=== PATIENT | female | born 1985 | race Caucasian/White ===

== ENCOUNTER 2019-08-20 16:49 | Inpatient (IN) ==
[2019-08-20] MEDS ORDERED: OXYTOCIN 30 UNITS/500 ML BAG IV PRN ×3 (17:13→23:27)
[2019-08-20] MEDS ORDERED: LACTATED RINGER'S 1,000 ML IV PRN (17:13)
[2019-08-20 17:42] LABS: Hematocrit (blood only) 33.1 % (37-47); Mean Corpuscular Hemoglobin 27.3 pg (25-34); Mean Corpuscular Volume 82.1 fL (80-100); Mean Platelet Volume 12.3 fL (7.4-10.4); Nucleated RBC # (auto) 0.03 K/uL (0-0); Nucleated RBC % (auto) 0.2 %; Platelet Count 211 K/uL (130-400); RDW Coefficient of Variation 13.6 % (11.5-14.5); RDW Standard Deviation 40.8 fL (36.4-46.3); Red Blood Count 4.03 M/uL (4.2-5.4); White Blood Count 17.26 K/uL (4.8-10.8)
[2019-08-20 17:48] LABS: Mean Corpuscular Hgb Conc 33.2 g/dL (32-36)
--- NOTE | 2019-08-20 18:40 | History & Physical Report ---
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 Patient states her contractions began in earnest at approximately 1400 hrs. on day of admission. She denied rupture of membranes or vaginal bleeding. The patient's course is remarkable for gestational diabetes, diet- controlled. She was diagnosed at 28 weeks. All abdominal circumference ultrasounds of the fetus have been less than the 75th percentile and she has been managed with diet alone. Laboratory values for this show blood type of O+, antibody negative, rubella immune, hepatitis B negative, the patient declined all genetic screening, and she had a negative third trimester beta strep culture. Allergies Allergy/AdvReac Type Severity Reaction Status Date / Time escitalopram [From Lexapro] Allergy Hives Verified 08/19/19 16:12 paroxetine [From Paxil] Allergy Unknown Verified 08/19/19 16:12 sertraline [From Zoloft] Allergy Unknown Verified 08/19/19 16:12 Home Medications Home Medications Medication Instructions Recorded Confirmed Type blood sugar diagnostic #120 ea 07/01/19 08/19/19 Rx blood-glucose meter #1 ea 07/01/19 08/19/19 Rx lancets 33 gauge #100 ea 07/01/19 08/19/19 Rx lancing device with lancets #1 ea 07/01/19 08/19/19 Rx vit-iron fum-folic ac 1 tab PO DAILY 08/20/19 08/20/19 History [ Vitamin] Patient History Social History (Updated 02/25/19 @ 06:32 by Swapna Rivera) Preferred Language: Sami Beliefs That Will Affect Care: None marital status: Single Current Living Situation: Significant Other Current Living Situation Comment: [facility] Other Information That Helps Us Care for You: No Feels Safe at Home: Yes Safety Concerns: Feels Safe At This Time Smoking Status: Never smoker Hx Alcohol Use: No Hx Substance Use: No Physical Exam Constitutional: WD/WN, vitals as above Respiratory: Auscultation: lungs clear to auscultation bilaterally Cardiovascular: RRR, no murmur, no edema Extremities: no calf tenderness Gastrointestinal (Abdomen): Abdomen: Gravid, vertex, positive heart tones, estimated weight of 8 pounds Genitourinary: Cervix: 5 cm / 100%/-1 station, artificial rupture of membranes clear fluid Results & Data Vital Signs (Past 12 Hours) Vital Signs Temp Resp 08/20/19 16:53 98.4 F 20 Coding Level of Care Code None Diagnoses Supervision of normal intrauterine in multigravida Z34.80
[2019-08-20] MEDS ORDERED: BUPIVACAINE 0.25% 30 ML VIAL ONE (19:10)
[2019-08-20] MEDS ORDERED: ePHEDrine sulfate 50 MG/ML AMP ONE (19:10)
[2019-08-20] MEDS ORDERED: fentaNYL citrate 100 MCG/2 ML VIAL ONE (19:10)
[2019-08-20] MEDS ORDERED: fentaNYL 2MCG/ML ROPIV 1.25MG/ML 100 ML BAG EPI ONE (19:11)
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
[2019-08-20] MEDS ORDERED: ePHEDrine sulfate 50 MG/ML AMP IV PRN (19:43)
[2019-08-20] MEDS ORDERED: NALOXONE HCL 1 MG in SODIUM CHLORIDE 0.9% 1000ML 1,000 ML IV PRN (19:43)
[2019-08-20] MEDS ORDERED: NALOXONE HCL 0.4 MG/1 ML VIAL/CARP IV PRN (19:43)
[2019-08-20] MEDS ORDERED: NALBUPHINE HCL INJ 10 MG/ML AMP IV PRN (19:43)
[2019-08-20] MEDS ORDERED: PROMETHAZINE HCL 25 MG in SODIUM CHLORIDE 0.9% 50 ML IV PRN (19:43)
[2019-08-20] MEDS ORDERED: ONDANSETRON INJ 2 MG/ML 2 ML VIAL IV PRN (19:43)
[2019-08-20] MEDS ORDERED: DiphenhydrAMINE HCL 50 MG/ML VIAL IV PRN (19:43)
[2019-08-20] MEDS ORDERED: fentaNYL 2MCG/ML ROPIV 1.25MG/ML 100 ML BAG EPI PRN (19:43)
--- NOTE | 2019-08-20 19:58 | Labor Progress Brief Note ---
Date of Service August 20, 2019 Subjective Reason For Note: Routine Evaluation Comfortable with epidural Assessment & Plan (1) Supervision of normal intrauterine in multigravida: - tracing Cat II - no cervical change for 3 hours - pitocin augmentation Physical Exam Genitourinary: Cervix: No change Results & Data Vital Signs (Past 12 Hours) Vital Signs Temp Pulse Resp BP Pulse Ox 08/20/19 19:55 113 H 96 08/20/19 19:50 106 H 120/68 100 08/20/19 19:48 77 126/68 08/20/19 19:46 85 132/66 08/20/19 19:45 103 H 100 08/20/19 19:44 85 129/68 08/20/19 19:42 90 134/71 08/20/19 19:41 84 85 L 08/20/19 19:40 85 100 08/20/19 19:35 78 100 08/20/19 19:30 85 100 08/20/19 19:25 78 100 08/20/19 19:20 94 H 99 08/20/19 19:02 78 137/87 08/20/19 16:53 98.4 F 20 Coding Level of Care Code None Diagnoses Supervision of normal intrauterine in multigravida Z34.80
--- NOTE | 2019-08-20 21:34 | Labor Progress Brief Note ---
Date of Service August 20, 2019 Subjective Reason For Note: Routine Evaluation Assessment & Plan (1) Supervision of normal intrauterine in multigravida: - tracing Cat II - patient to begin 2nd stage Physical Exam Genitourinary: Cervix: Complete/(+)1/RICKY Results & Data Vital Signs (Past 12 Hours) Vital Signs Temp Pulse Resp BP Pulse Ox 08/20/19 21:30 78 100 08/20/19 21:25 76 123/60 100 08/20/19 21:20 82 100 08/20/19 21:15 80 99 08/20/19 21:11 82 131/82 08/20/19 21:10 95 H 95 08/20/19 21:05 94 H 95 08/20/19 21:03 93 H 89 L 08/20/19 21:00 85 18 98 08/20/19 20:55 87 107/70 100 08/20/19 20:53 98.4 F 08/20/19 20:50 86 99 08/20/19 20:45 107 H 100 08/20/19 20:40 90 100 08/20/19 20:39 85 121/72 08/20/19 20:35 84 100 08/20/19 20:30 91 H 18 99 08/20/19 20:25 81 100 08/20/19 20:24 80 18 126/78 08/20/19 20:20 102 H 100 08/20/19 20:15 83 99 08/20/19 20:10 97 H 99 08/20/19 20:06 90 18 130/75 08/20/19 20:05 88 100 08/20/19 20:02 88 18 124/72 08/20/19 20:00 94 H 97 08/20/19 19:57 97 H 16 122/65 90 08/20/19 19:55 113 H 96 08/20/19 19:50 106 H 16 120/68 100 08/20/19 19:48 77 16 126/68 08/20/19 19:46 85 18 132/66 08/20/19 19:45 103 H 100 08/20/19 19:44 85 18 129/68 08/20/19 19:42 90 18 134/71 08/20/19 19:41 84 85 L 08/20/19 19:40 85 100 08/20/19 19:35 78 100 08/20/19 19:30 85 100 08/20/19 19:25 78 100 08/20/19 19:20 94 H 99 08/20/19 19:02 98.1 F 78 20 137/87 08/20/19 16:53 98.4 F 20 Coding Level of Care Code None Diagnoses Supervision of normal intrauterine in multigravida Z34.80
--- NOTE | 2019-08-20 22:21 | Delivery Summary ---
Vaginal Delivery Summary Date of Service August 20, 2019 Vaginal Delivery Summary Findings: Viable female with Apgars of 8 and 9, baby delivered over an intact perineum. Cord gases and cord blood samples obtained. Placenta delivered spontaneously. Estimated blood loss 300 cc Labor Note: The patient is a 34-year-old 3 para 1-1-0-2, with an EDC of 25 August at 39+ weeks gestational age, who presents to labor and delivery for labor check. Patient states her contractions began in earnest at approximately 1400 hrs. on day of admission. She denied rupture of membranes or vaginal bleeding. The patient's course is remarkable for gestational diabetes, diet- controlled. She was diagnosed at 28 weeks. All abdominal circumference ultrasounds of the fetus have been less than the 75th percentile and she has been managed with diet alone. Laboratory values for this show blood type of O+, antibody negative, rubella immune, hepatitis B negative, the patient declined all genetic screening, and she had a negative third trimester beta strep culture. Upon admission the patient was 5 cm dilated 100% station and 0 station. She was observed for 2 hours with no cervical change and had artificial rupture of membranes for clear fluid. Contractions increased in intensity at which point she requested and received an epidural from anesthesia. After the epidural there had still been no cervical change and Pitocin augmentation was initiated. The patient progressed to full dilatation and began her second stage. She pushed for approximately 15 minutes delivering the viable female infant. Cord was clamped and cut. Cord gases and cord blood samples were obtained. Placenta was delivered spontaneously. Inspection of the perineum was found to be intact. Estimated blood loss 300 cc. Sponge and needle count was correct.
[2019-08-20] MEDS ORDERED: IBUPROFEN 600 MG TAB PO ONE (22:22)
[2019-08-20 22:28] LABS: Base Excess Cord Arterial Bld -11.6 mEq/L (-9-1.8); CO2 Cord Arterial Blood 78 mmHg (39.1-73.5); HCO3 Cord Arterial Blood 21 mmol/L (19.7-28.5); Oxygen Sat Cord Arterial Blood < 60.0 % (<60); PO2 Cord Arterial Blood 26 mmHg (4.1-31.7); pH Cord Arterial Blood 7.04 (7.1-7.38)
[2019-08-20 22:33] LABS: Base Excess Cord Venous Blood -9.8 mEq/L (-7.7-1.9); Cord Venous Blood HCO3 19 mmol/L (18.4-26.8); Cord Venous Blood PCO2 54 mmHg (30.4-57.2); Cord Venous Blood PO2 29 mmHg (14.1-43.3); Cord Venous Blood pH 7.17 (7.20-7.44)
[2019-08-20 22:37] LABS: O2 Saturation Cord Venous Bld < 60.0 % (<68)
[2019-08-20] MEDS ORDERED: ACETAMINOPHEN W/CODEINE #3 1 TAB PO PRN (23:27)
[2019-08-20] MEDS ORDERED: SUPERCREAM 0.870% 15 GM JAR EXT PRN (23:27)
[2019-08-20] MEDS ORDERED: ACETAMINOPHEN 325 MG TAB PO PRN (23:27)
[2019-08-20] MEDS ORDERED: BENZOCAINE 20% AER SPR 82.5 GM CAN EXT PRN (23:27)
[2019-08-20] MEDS ORDERED: HYDROCORTISONE ACETATE 25 MG SUPP PR PRN (23:27)
[2019-08-20] MEDS ORDERED: DIPHTHERIA/TETANUS/PERTUSSIS 0.5 ML SYR/VIAL IM ONE (23:27)
[2019-08-21] MEDS: IBUPROFEN 600 MG TAB PO PRN ×4 (03:43→20:21)
--- NOTE | 2019-08-21 06:33 | Obstetrical Progress Note ---
Date of Service August 21, 2019 Assessment & Plan (1) Status post vaginal delivery: Marcia is a 34 yo on PPD 1 after at 39w - GBS -, Blood Type O+, Rubella immune -Vitals reviewed: BP 141/82. sys max in last 24 hours 158, diastolic max 84; continue to monitor -patient is doing clinically well Continue routine post care - After discharge will have [address] Brown. Supervising Physician Co-Signing Physician Notes Resident Physician Supervision Note: I was present with Dr. Villagomez during the history and exam. I discussed the case with the resident and agree with the findings and plan as documented in the note. Any exceptions or clarifications are listed here: Patient desires breast pump for d/c Documented By: Breezy Brown Jr, MD, FACOG Subjective Ambulation: ambulating normally Voiding: no voiding problems Passing Gas:: Yes Diet Tolerance:: regular diet Lochia:: Small Feeding Type:: breast feeding Review of Systems Constitutional: no fever, no chills and no sweats Eyes: no worsening vision Respiratory: no cough and no dyspnea Cardiovascular: no chest pain, no palpitations, no edema and no calf pain Gastrointestinal: no nausea and no vomiting Genitourinary: no dysuria and no urinary frequency Neurologic: no headache(s) Physical Exam Constitutional: WD/WN, vitals as above no acute distress Respiratory: normal respiratory effort, lungs clear to auscultation does not use accessory muscles Auscultation: no crackles, no rales, no rhonchi, no wheezes and no pleural rub Cardiovascular: Rate/Rhythm: regular rate and regular rhythm Heart Sounds: normal S1 and normal S2; no gallop, no murmur and no cardiac rub Extremities: no calf tenderness and no pedal edema Gastrointestinal (Abdomen): Inspection/Auscultation: normal bowel sounds; abdomen not distended Percussion/Palpation: abdomen soft Genitourinary: Uterus: fundus firm, palpable 1 cm below the umbilicus Results & Data Vital Signs (Past 12 Hours) Vital Signs Temp Pulse Pulse Resp BP BP Pulse Ox 08/21/19 04:40 36.6 C 76 20 141/82 H 08/21/19 00:30 36.7 C 86 20 125/68 08/21/19 00:09 36.7 C 20 08/21/19 00:08 86 125/68 08/20/19 23:53 81 122/68 08/20/19 23:39 18 08/20/19 23:38 87 120/69 08/20/19 23:29 78 124/70 08/20/19 23:24 88 158/84 H 08/20/19 23:09 82 18 154/75 H 08/20/19 22:54 82 18 147/70 H 08/20/19 22:39 88 20 128/72 08/20/19 22:24 88 18 158/78 H 08/20/19 22:09 36.8 C 101 H 18 135/77 08/20/19 22:05 91 H 99 08/20/19 22:00 102 H 20 100 08/20/19 21:55 108 H 100 08/20/19 21:50 86 79 L 08/20/19 21:47 94 H 91 08/20/19 21:45 86 100 08/20/19 21:40 90 100 08/20/19 21:39 86 141/69 H 08/20/19 21:35 88 100 08/20/19 21:30 78 20 100 08/20/19 21:25 76 123/60 100 08/20/19 21:20 82 100 08/20/19 21:15 80 99 08/20/19 21:11 82 131/82 08/20/19 21:10 95 H 95 08/20/19 21:05 94 H 95 08/20/19 21:03 93 H 89 L 08/20/19 21:00 85 18 98 08/20/19 20:55 87 107/70 100 08/20/19 20:53 36.9 C 08/20/19 20:50 86 99 08/20/19 20:45 107 H 100 08/20/19 20:40 90 100 08/20/19 20:39 85 121/72 08/20/19 20:35 84 100 08/20/19 20:30 91 H 18 99 08/20/19 20:25 81 100 08/20/19 20:24 80 18 126/78 08/20/19 20:20 102 H 100 08/20/19 20:15 83 99 08/20/19 20:10 97 H 99 08/20/19 20:06 90 18 130/75 0204/20 20:05 88 100 08/20/19 20:02 88 18 124/72 08/20/19 20:00 94 H 97 08/20/19 19:57 97 H 16 122/65 90 08/20/19 19:55 113 H 96 08/20/19 19:50 106 H 16 120/68 100 08/20/19 19:48 77 16 126/68 08/20/19 19:46 85 18 132/66 08/20/19 19:45 103 H 100 08/20/19 19:44 85 18 129/68 08/20/19 19:42 90 18 134/71 08/20/19 19:41 84 85 L 08/20/19 19:40 85 100 08/20/19 19:35 78 100 08/20/19 19:30 85 100 08/20/19 19:25 78 100 08/20/19 19:20 94 H 99 08/20/19 19:02 36.7 C 78 20 137/87 Resident Activity Tracking Resident Involvement: Resident Care Provided Care Provided: OB Delivery
[2019-08-21] MEDS: DOCUSATE SODIUM 100 MG CAP PO SCH ×2 (08:47→20:21)
[2019-08-21] MEDS: PRENATAL VITAMIN 1 TAB PO SCH (08:47)
--- NOTE | 2019-08-21 10:14 | Anesthesia Procedure Note ---
Date of Service August 21, 2019 Anesthesia Post Epidural Note Vital Signs Vital Signs: Temp Pulse Resp BP Pulse Ox 36.6 C 76 20 141/82 H 99 08/21/19 04:40 08/21/19 04:40 08/21/19 04:40 08/21/19 04:40 08/20/19 22:05 Pain Intensity Abdomen: Pain Intensity: 0 Notes Mental Status: alert / awake / arousable and participated in evaluation Patient Amnestic to Procedure: No Nausea / Vomiting: adequately controlled Pain: adequately controlled Airway Patency, RR, SpO2: stable & adequate BP & HR: stable & adequate Hydration State: stable & adequate Neuraxial Anesthesia: was administered and sensory block is resolving Anesthetic Complications: no major complications apparent and Pt Satisfied with anesthetic care Epidural: Removed without complications and With tip intact
[2019-08-21] MEDS ORDERED: bisacodyL 5 MG TABEC PO SCH (20:00)
--- NOTE | 2019-08-22 06:12 | Obstetrical Progress Note ---
Date of Service August 22, 2019 Assessment & Plan (1) Status post vaginal delivery: Marcia is a 34 yo on PPD 2 after at 39w - GBS -, Blood Type O+, Rubella immune -Vitals reviewed and WNL - script for breast pump provided Discharge instructions reviewed - After discharge will have [address] Brown. Supervising Physician Co-Signing Physician Notes I have reviewed the resident's note and examined the patient myself, and agree with the note above. Subjective Ambulation: ambulating normally Voiding: no voiding problems Passing Gas:: Yes Diet Tolerance:: regular diet Lochia:: Small Feeding Type:: breast feeding Review of Systems Constitutional: no fever, no chills and no sweats Eyes: no worsening vision Respiratory: no cough and no dyspnea Cardiovascular: no chest pain, no palpitations, no edema and no calf pain Gastrointestinal: no nausea and no vomiting Genitourinary: no dysuria and no urinary frequency Neurologic: no headache(s) Physical Exam Constitutional: WD/WN, vitals as above no acute distress Respiratory: normal respiratory effort, lungs clear to auscultation does not use accessory muscles Auscultation: no crackles, no rales, no rhonchi, no wheezes and no pleural rub Cardiovascular: Rate/Rhythm: regular rate and regular rhythm Heart Sounds: normal S1 and normal S2; no gallop, no murmur and no cardiac rub Extremities: no calf tenderness and no pedal edema Gastrointestinal (Abdomen): Inspection/Auscultation: normal bowel sounds; abdomen not distended Percussion/Palpation: abdomen soft Genitourinary: Uterus: fundus firm, palpable 2 cm below the umbilicus Results & Data Vital Signs (Past 12 Hours) Vital Signs Temp Pulse Resp BP Pulse Ox 08/21/19 23:50 36.6 C 65 18 133/81 98 08/21/19 20:11 36.6 C 65 20 135/76 98 Resident Activity Tracking Resident Involvement: Resident Care Provided Care Provided: OB Delivery
[2019-08-22 06:26] LABS: Hematocrit (blood only) 32.4 % (37-47); Hemoglobin 10.6 g/dL (12.0-16.0)
[2019-08-22] MEDS: DOCUSATE SODIUM 100 MG CAP PO SCH (09:02)
[2019-08-22] MEDS: PRENATAL VITAMIN 1 TAB PO SCH (09:02)
== END 2019-08-22 12:01 | disposition home or self-care (01) | DRG 807 ==
LOC: OPB 16:49 → 4S1 16:51 → 4S2 08-21 00:30